=== PATIENT | female | born 1975 ===

== ENCOUNTER 2021-11-04 09:40 | Day surgery (SDC) | payer OTHER ==
[2021-11-04] MEDS ORDERED: NAPR500T14 PO (14:11)
[2021-11-04] MEDS ORDERED: MORGIDOX100 MG PO (14:11)
== END 2021-11-04 21:10 | disposition home or self-care (01) ==
LOC: CIR.AMB 09:40
PROVIDERS: ATTEND Obstetrics & Gynecology
DX: D25.9 Leiomyoma of uterus, unspecified (principal); N92.1 Excessive and frequent menstruation with irregular cycle; Z20.822 Contact with and (suspected) exposure to COVID-19; Z86.16 Personal history of COVID-19